=== PATIENT | female | born 1960 | race Caucasian/White ===

== ENCOUNTER → 2017-07-23 | Outpatient (CLI) | payer BC ==
[~2017-07-23] MED LIST: AMBIEN10 MG PO; ATORVASTATIN CA20 MG PO; BUSPIRONE HCL10 MG PO; BUSPIRONE HCL5 MG PO; CALCIUM500 M1; CEFTIN250 MG PO; CELEXA10 MG PO; CITALOPRAM HBR20 MG PO; CLONAZEPAM0.5 MG PO; CONCERTA36 MG; ESTROVEN ENER400 MCG; HAIR, SKIN & N1 EAC1; IRON325 M1 PO; KEFLEX500 MG PEG; KLONOPIN0.5 MG PO; MULTI-VITAMIN1 EACH; MYRBETRIQ25 MG PO; NIACIN50 MG; NORCO 5-325 TA1 EACH PO; PANTOPRAZOLE SO20 MG; PANTOPRAZOLE SO40 MG PO; TYLENOL WITH C1 EACH PO; VISION VITAMIN1 EAC1 PO; VISION VITAMIN1 EACH; VIT B12 PO; VITAMINS FOR H1 EACH; [UNRECOGNIZED DRUG - OTHER] PO
--- NOTE | 2017-07-23 17:00 | Diagnostic Imaging Report ---
PROCEDURE:C-SPINE COMPLETE COMPARISON:None. INDICATIONS:RIGHT SIDED NECK/JAW PAIN FINDINGS: Generalized osteopenia. The cervical spine is visualized in the lateral view from the skull base to T1. Grade 1 anterolisthesis of C5 on C6 approximately 1-2 mm. There are no acute, displaced fractures, lytic or blastic lesions. Vertebral body heights and intervertebral disc spaces are relatively well-preserved. Uncovertebral joint hypertrophy C4-C5 and C5-C6. Bilateral oblique views show mild narrowing of the right C5-C6 and left C5-C6 neural foramina. No aggressive lytic lesions. Prevertebral soft tissues are unremarkable. CONCLUSION: 1. Uncovertebral joint hypertrophy C4-C5 and C5-C6. 2. Grade one anterolisthesis of C5 on C6. 3. Vertebral body heights and intervertebral disc spaces are relatively well preserved. 4. Mild narrowing of right C5-C6, and left C5-C6 neural foramina. Juan A Wright M.D. Dictated by: Juan A Wright M.D. on 07/23/2017 at 17:00 Electronically approved by: Juan A Wright M.D. on 07/23/2017 at 17:00
== END ==
LOC: RAD 15:30
PROVIDERS: ATTEND Chiropractor
DX: M54.2 Cervicalgia (principal)
CPT/HCPCS: 72050

== ENCOUNTER → 2017-08-04 | Outpatient (CLI) | payer BC ==
--- NOTE | 2017-08-04 23:41 | Diagnostic Imaging Report ---
EXAMINATION: MRI of the cervical spine without contrast HISTORY: Neck and arm pain with numbness COMPARISON: None available TECHNIQUE: Sagittal T1, T2, STIR; axial T2, gradient echo. FINDINGS: Curvature: Normal lordosis. Vertebrae: No evidence of neoplasm, infection, or fracture. Foramen magnum: No mass, Chiari malformation, or basilar invagination. Spinal Cord: Normal size and signal intensity. Soft Tissues: Unremarkable. Mildly prominent perineural cyst on the right and C6-C7 to T1-T2. Degenerative changes: C1-C2: Unremarkable. C2-C3: Prominent facet arthroses, mainly in the right side without canal or foraminal stenoses. Minimal right facet joint effusion and bone marrow edema likely due to degenerative synovitis. C3-C4: Prominent facet arthrosis. No canal or foraminal stenoses C4-C5: Prominent facet arthrosis mainly on the left moderate left foraminal stenoses.. C5-C6: Bilateral facet arthrosis minimally on the right. Minimal foraminal narrowing. C6-C7: Mild facet arthrosis minimally right. No canal or foraminal stenosis. C7-T1: Bilateral facet arthrosis without canal or foraminal stenoses IMPRESSION: 1. Prominent facet arthrosis from C2-C3 to C7-T1 results in moderate foraminal stenosis on the left at C4-C5, otherwise no significant spinal canal or foraminal stenoses. 2. Mild degenerative Facet synovitis on the right at C2-C3. Signed by: Dr. Joy López M.D. on 08/04/2017 11:37 PM
== END ==
LOC: MRI 15:51
PROVIDERS: ATTEND Chiropractor
DX: M50.022 Cervical disc disorder at C5-C6 level with myelopathy (principal)
CPT/HCPCS: 72141

== ENCOUNTER 2017-08-18 13:37 | Outpatient (RCR) | payer BC ==
[2017-08-20] MEDS ORDERED: SODIUM CHLORIDE 0.9% 50ML 50 ML ONE (17:08)
[2017-08-20] MEDS ORDERED: IOPAMIDOL 370 MG/ML 200 ML INFUS..BTL INJ ONE (17:09)
== END 2017-09-04 ==
LOC: PT 13:37
PROVIDERS: ATTEND Neurological Surgery
DX: M54.2 Cervicalgia (principal); M54.5 Low back pain; M62.81 Muscle weakness (generalized)
CPT/HCPCS: 97110; 97163; Q9967

== ENCOUNTER → 2017-08-20 | Outpatient (CLI) | payer BC ==
--- NOTE | 2017-08-20 16:49 | Diagnostic Imaging Report ---
PROCEDURE: CT ABDOMEN WITH CONTRAST TECHNIQUE: The abdomen was scanned utilizing a multidetector helical scanner from the diaphragm to the iliac crest after the IV administration of 100 cc of Isovue 370 and the oral administration of water. Coronal and sagittal multiplanar reformations were obtained. Total DLP: 237.73 mGy-cm COMPARISON: CT abdomen pelvis 12/19/2014. INDICATIONS: EPIGASTRIC PAIN FINDINGS: LOWER THORAX: Normal. HEPATOBILIARY: No focal hepatic lesions. No biliary ductal dilatation. SPLEEN: Surgically absent PANCREAS: No focal masses or ductal dilatation. ADRENALS: No adrenal nodules. KIDNEYS: No hydronephrosis, stones, or solid mass lesions. PERITONEUM / RETROPERITONEUM: No free air or fluid. LYMPH NODES: No lymphadenopathy. VESSELS: Unremarkable. GI TRACT: Visualized portions of the bowel demonstrate no distention or wall thickening. Postoperative changes of Reji-en-Y gastric surgery. 2 duodenal diverticula measuring 3.0 cm and 3.1 cm. BONES AND SOFT TISSUES: Previous midline laparotomy scar. IMPRESSION: 1. Stable postoperative changes of Reji-en-Y gastric bypass. 2. No acute abnormalities identified in the abdomen or pelvis. Dictated by: En Guzman M.D. on 08/20/2017 at 16:51 Electronically approved by: En Guzman M.D. on 08/20/2017 at 16:51
== END ==
LOC: CT 11:52
PROVIDERS: ATTEND Internal Medicine Gastroenterology
DX: R10.13 Epigastric pain (principal); R10.12 Left upper quadrant pain; R10.812 Left upper quadrant abdominal tenderness; R19.7 Diarrhea, unspecified; R14.0 Abdominal distension (gaseous); E66.3 Overweight; I10 Essential (primary) hypertension; R53.83 Other fatigue; Z71.3 Dietary counseling and surveillance; Z80.0 Family history of malignant neoplasm of digestive organs; Z86.010 Personal history of colon polyps; Z98.84 Bariatric surgery status
CPT/HCPCS: 74160

== ENCOUNTER → 2018-04-21 | Day surgery (SDC) | payer BC ==
[2018-04-20 09:49] LABS: INR 0.89; PROTHROMBIN TIME 12.9 seconds (11.9-14.5)
[2018-04-20 09:58] LABS: ALANINE AMINOTRANSFERASE 21 IU/L (0-55); ALBUMIN 3.7 g/dL (3.5-5.0); ALBUMIN/GLOBULIN RATIO 1.4 (0.8-2.0); ALKALINE PHOSPHATASE 71 IU/L (40-150); BLOOD UREA NITROGEN 12 mg/dL (7-26); BUN/CREATININE RATIO 16 (6-25); CALCIUM 8.9 mg/dL (8.4-10.2); CARBON DIOXIDE 27 mmol/L (22-29); CHLORIDE 106 mmol/L (98-107); CREATININE, SERUM 0.76 mg/dL (0.57-1.11); EST GLOMERULAR FILTRATION RATE > 60 ML/MIN (60-); GLUCOSE 75 mg/dL (74-118); SODIUM 140 mmol/L (136-145)
[2018-04-21] VITALS (10 sets, daily range): BP systolic 97–117; BP diastolic 50–64
[~2018-04-21] VITALS: Ht 160 cm; Wt 68.9 kg
[~2018-04-21] MED LIST changes: +ALPRAZOLAM 0.5 MG TAB ONE; +CONCERTA36 MG PO; +DIPHENHYDRAMINE HCL 25 MG CAP ONE; +FENTANYL CITRATE/PF 100MCG/2 ML INJ ONE; -HAIR, SKIN & N1 EAC1; +HAIR, SKIN & N1 EAC1 PO; +HEPARIN SOD (PORCINE) 1000 UNIT/ML 30ML ONE; +HEPARIN SOD/SOD CHLORIDE 2,000 ML ONE; +IOPAMIDOL 370 MG/ML 200 ML INFUS..BTL INJ ONE; +LIDOCAINE HCL 1% LOCAL INJ 20 ML VIAL ONE; +MIDAZOLAM HCL 2 MG/2 ML VIAL ONE; +NITROGLYCERIN/D5W 200 MCG/ML 250 ML ONE; +SODIUM CHLORIDE 0.9% 1000ML 1,000 ML ONE; +SUPER B-50 COM1 EACH PO; +VERAPAMIL HCL 2.5 MG/ML 2 ML VIAL ONE; +VITAMIN C PO; +VITAMIN D1000 UNI1 PO
--- OUTSIDE RECORDS SUMMARY | 2018-04-21 08:50 | XMS REPORT | Clinical Summary ---
Author Author [facility] Organization [facility] Address Unknown Phone Unavailable Care Team Providers Care Crm Solution Architect Name Role Phone Lilian Howard MD PCP Allergies Comments Active Allergy Reactions Severity Noted Date Levofloxacin 07/25/2016 Medications End Date Status Medication Sig Dispensed Refills Start Date Active DAYTRANA 30 mg/9 hr 0 7 Active pantoprazole (PROTONIX) 0 40 MG EC tablet 7 Active citalopram (CeleXA) 10 MG 0 tablet 7 Active clonAZEPAM (KlonoPIN) 0.5 0 MG disintegrating tablet 7 Active atorvastatin (LIPITOR) 20 0 07/08/ MG tablet 7 Active Problems Problem Noted Date Iron deficiency anemia due to chronic blood loss 07/25/2016 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 Encounters Care Team Description Date Type Specialty Geo Sauer MD Iron deficiency anemia due to chronic blood loss (Primary Dx) 09/02/2017 Office Visit Hematology Tyler Hodge MA Iron deficiency anemia due to chronic blood loss (Primary Dx) 08/29/2017 Orders Only Hematology after 04/20/2017 Immunizations Name Dates Previously Given Next Due Pneumococcal Conjugate 07/25/2016 13-Valent Social History Date Tobacco Use Types Packs/Day Years Used Never Smoker Alcohol Use Drinks/Week oz/Week Comments No Sex Assigned at Date Recorded Not on file Industry Job Start Date Occupation Not on file Not on file Not on file Travel End Travel History Travel Start No recent travel history available. Last Filed Vital Signs Time Taken Vital Sign Reading 09/02/2017 11:49 AM CDT Blood Pressure 112/56 09/02/2017 11:49 AM CDT Pulse 76 09/02/2017 11:49 AM CDT Temperature 35.7 C (96.3 F) - Respiratory Rate - - Oxygen Saturation - - Inhaled Oxygen - Concentration 09/02/2017 11:49 AM CDT Weight 74.8 kg (164 lb 12.8 oz) 09/02/2017 11:49 AM CDT Height 160 cm (5' 3") 09/02/2017 11:49 AM CDT Body Mass Index 29.19 Plan of Treatment Health Maintenance Due Date Last Done Comments CERVICAL CANCER SCREENING 12/18/1983 BREAST CANCER SCREENING 2012 COLON CANCER SCREENING 2012 SHINGLES VACCINES (1 of 2012 2) INFLUENZA VACCINE 11/05/2017 Procedures Comments Procedure Name Priority Date/Time Associated Diagnosis FERRITIN LEVEL Routine 09/02/2017 Iron deficiency anemia 11:23 AM CDT due to chronic blood loss HC COMPLETE BLD COUNT Routine 09/02/2017 Iron deficiency anemia W/AUTO DIFF 11:23 AM CDT due to chronic blood loss after 04/20/2017 Results * CBC with platelet and differential (09/02/2017 11:23 AM CDT) WBC 7.30 4.50 - 11.00 k/uL [facility] DEPARTMENT OF PATHOLOGY AND GENOMIC MEDICINE RBC 4.50 4.20 - 5.50 m/uL [facility] DEPARTMENT OF PATHOLOGY AND GENOMIC MEDICINE HGB 13.0 12.0 - 16.0 g/dL [facility] DEPARTMENT OF PATHOLOGY AND GENOMIC MEDICINE HCT 39.8 37.0 - 47.0 % [facility] DEPARTMENT OF PATHOLOGY AND GENOMIC MEDICINE MCV 88.4 82.0 - 100.0 fL [facility] DEPARTMENT OF PATHOLOGY AND GENOMIC MEDICINE MCH 28.9 27.0 - 34.0 pg [facility] DEPARTMENT OF PATHOLOGY AND GENOMIC MEDICINE MCHC 32.7 31.0 - 37.0 g/dL [facility] DEPARTMENT OF PATHOLOGY AND GENOMIC MEDICINE RDW - SD 48.7 37.0 - 55.0 fL [facility] DEPARTMENT OF PATHOLOGY AND GENOMIC MEDICINE MPV 9.1 8.8 - 13.2 fL [facility] DEPARTMENT OF PATHOLOGY AND GENOMIC MEDICINE Platelet count 480 (H) 150 - 400 k/uL [facility] DEPARTMENT OF PATHOLOGY AND GENOMIC MEDICINE Neutrophils 50.2 39.0 - 69.0 % [facility] DEPARTMENT OF PATHOLOGY AND GENOMIC MEDICINE Lymphocytes 29.2 25.0 - 45.0 % [facility] DEPARTMENT OF PATHOLOGY AND GENOMIC MEDICINE Monocytes 12.7 (H) 0.0 - 10.0 % [facility] DEPARTMENT OF PATHOLOGY AND GENOMIC MEDICINE Eosinophils 6.8 (H) 0.0 - 5.0 % [facility] DEPARTMENT OF PATHOLOGY AND GENOMIC MEDICINE Basophils 1.1 (H) 0.0 - 1.0 % [facility] DEPARTMENT OF PATHOLOGY AND GENOMIC MEDICINE Specimen Blood Performing Organization Address City/State/Zipcode Phone Number [address] [address] PATHOLOGY AND GENOMIC MEDICINE * Ferritin level (09/02/2017 11:23 AM CDT) Ferritin level <13 (A) 13 - 150 ng/mL [facility] DEPARTMENT OF PATHOLOGY AND GENOMIC MEDICINE Specimen Plasma specimen Performing Organization Address City[facility] Phone Number [facility] DEPARTMENT [address] [address] PATHOLOGY AND GENOMIC MEDICINE after 04/20/2017 Insurance Payer Benefit Subscriber ID Type Phone Address Plan / Group BCBS ANTHEM xxxxxxxxxxxx PPO BLUE CROSS Advance Directives Patient has advance care planning documents on file. For more information, jesse lewis contact: Phoenix Trev[address] [place] [address]
--- OUTSIDE RECORDS SUMMARY | 2018-04-21 08:50 | XMS REPORT ---
Author Author [facility] Address Unknown Phone Unavailable Care Team Providers Care Director Funds Development Name Role Phone Ace DESAI Unavailable Unavailable Lucila HEARN D.C. Unavailable Unavailable MCNEILL, SOUHEIL Unavailable Unavailable CADORE, RANDY Unavailable Unavailable Problems This patient has no known problems. Allergies, Adverse Reactions, Alerts This patient has no known allergies or adverse reactions. Medications This patient has no known medications. Results Test Description Test Time Test Comments Text Results Atomic Results Result Comments CT ABDOMEN W [place] [address] Patient Name: KEVON COPPOLA MR #: [id number] : 1960 Age/Sex: 56/F Req #: [id number] Adm Physician: Ordered by: GAGANDEEP DESAI MD Report #: [id number] Location: CT Room/Bed: Procedure: [id number] CT/CT ABDOMEN W Exam Date: 08/20/17 Exam Time: 1556 REPORT STATUS: Signed PROCEDURE: CT ABDOMEN WITH CONTRAST TECHNIQUE: The abdomen was scanned utilizing a multidetector helical scanner from the diaphragm to the iliac crest after the IV administration of 100 cc of Isovue 370 and the oral administration of water. Coronal and sagittal multiplanar reformations were obtained. Total DLP: 237.73 mGy-cm COMPARISON: CT abdomen pelvis 12/19/2014. INDICATIONS: EPIGASTRIC PAIN FINDINGS: LOWER THORAX: Normal. HEPATOBILIARY: No focal hepatic lesions. No biliary ductal dilatation. SPLEEN: Surgically absent PANCREAS: No focal masses or ductal dilatation. ADRENALS: No adrenal nodules. KIDNEYS: No hydronephrosis, stones, or solid mass lesions. PERITONEUM / RETROPERITONEUM: No free air or fluid. LYMPH NODES: No lymphadenopathy. VESSELS: Unremarkable. GI TRACT: Visualized portions of the bowel demonstrate no distention or wall thickening. Postoperative changes of Reji-en-Y gastric surgery. 2 duodenal diverticula measuring 3.0 cm and 3.1 cm. BONES AND SOFT TISSUES: Previous midline laparotomy scar. IMPRESSION: 1. Stable postoperative changes of Reji-en-Y gastric bypass. 2. No acute abnormalities identified in the abdomen or pelvis. Dictated by: Nelda Pandey M.D. on 08/20/2017 at 16:51 Electronically approved by: Nelda Pandey M.D. on 08/20/2017 at 16:51 Dictated By: NELDA PANDEY MD 50 Transcribed By: JULISA on 08/20/171650 COPY TO: GAGANDEEP DESAI MD MRI SPINE CERVICAL WO [place] [address] Patient Name: KEVON COPPLOA MR #: [id number] : 1960 Age/Sex: 56/F Req #: [id number] Adm Physician: Ordered by: MAURO HEARN D.C. Report #: [id number] Location: MRI Room/Bed: Procedure: [id number] MRI/MRI SPINE CERVICAL WO Exam Date: Exam Time: REPORT STATUS: Signed EXAMINATION: MRI of the cervical spine without contrast HISTORY: Neck and arm pain with numbness COMPARISON: None available TECHNIQUE: Sagittal T1, T2, STIR; axial T2, gradient echo. FINDINGS: Curvature: Normal lordosis. Vertebrae: No evidence of neoplasm, infection, or fracture. Foramen magnum: No mass, Chiari malformation, or basilar invagination. Spinal Cord: Normal size and signal intensity. Soft Tissues: Unremarkable. Mildly prominent perineural cyst on the right and C6-C7 to T1-T2. Degenerative changes: C1-C2: Unremarkable. C2-C3: Prominent facet arthroses, mainly in the right side without canal or foraminal stenoses. Minimal right facet joint effusion and bone marrow edema likely due to degenerative synovitis. C3-C4: Prominent facet arthrosis. No canal or foraminal stenoses C4-C5: Prominent facet arthrosis mainly on the left moderate left foraminal stenoses.. C5-C6: Bilateral facet arthrosis minimally on the right. Minimal foraminal narrowing. C6-C7: Mild facet arthrosis minimally right. No canal or foraminal stenosis. C7- T1: Bilateral facet arthrosis without canal or foraminal stenoses IMPRESSION: 1. Prominent facet arthrosis from C2-C3 to C7-T1 results in moderate foraminal stenosis on the left at C4-C5, otherwise no significant spinal canal or foraminal stenoses. 2. Mild degenerative Facet synovitis on the right at C2-C3. Signed by: Dr. Joel López M.D. on 08/04/2017 11:37 PM Dictated By: JOEL LÓPEZ MD 36 Transcribed By: ESDRAS on 08/04/172336 COPY TO: MAURO HEARN D.C. CERVICAL SPINE 4 OR 5 VIEWS [place] [address] Patient Name: KEVON COPPOLA MR #: [id number] : 1960 Age/Sex: 56/F Req #: [id number] Adm Physician: Ordered by: MAURO HEARN D.C. Report #: [id number] Location: [facility] Room/Bed: Procedure: [id number] DX/CERVICAL SPINE 4 OR 5 VIEWS Exam Date: Exam Time: REPORT STATUS: Signed PROCEDURE: C-SPINE COMPLETE COMPARISON: None. INDICATIONS: RIGHT SIDED NECK/JAW PAIN FINDINGS: Generalized osteopenia. The cervical spine is visualized in the lateral view from the skull base to T1. Grade 1 anterolisthesis of C5 on C6 approximately 1-2 mm. There are no acute, displaced fractures, lytic or blastic lesions. Vertebral body heights and intervertebral disc spaces are relatively well- preserved. Uncovertebral joint hypertrophy C4-C5 and C5-C6. Bilateral oblique views show mild narrowing of the right C5-C6 and left C5-C6 neural foramina. No aggressive lytic lesions. Prevertebral soft tissues are unremarkable. CONCLUSION: 1. Uncovertebral joint hypertrophy C4-C5 and C5-C6. 2. Grade one anterolisthesis of C5 on C6. 3. Vertebral body heights and intervertebral disc spaces are relatively well preserved. 4. Mild narrowing of right C5-C6, and left C5-C6 neural foramina. Rene Wright M.D. Dictated by: Rene Wright M.D. on 07/23/2017 at 17:00 Electronically approved by: Reen Wright M.D. on 07/23/2017 at 17:00 Dictated By: RENE WRIGHT MD 170 Transcribed By: JULISA on 07/23/17 170 COPY TO: MAURO HEARN D.C. RENAL RETROPERITONEAL COMP [place] [address] Patient Name: KEVON COPPOLA MR #: [id number] : 1960 Age/Sex: 56/F Req #: [id number] [facility] Physician: Ordered by: LANIE MCNEILL MD Report #: [id number] Location: US Room/Bed: Procedure: [id number] US/US RENAL RETROPERITONEAL COMP Exam Date: 01/16/17 Exam Time: 1522 REPORT STATUS: Signed PROCEDURE: US RETROPERITONEAL ( KIDNEY ). COMPARISON: None. INDICATIONS: UTI, Back Pain TECHNIQUE: Perdomo-scale and color sonographic images of the bilateral kidneys and bladder where obtained in transverse and longitudinal planes. FINDINGS: RIGHT KIDNEY: 10.1 cm, cortex 1.2 cm Cysts: None Solid masses: None Stones: None Hydronephrosis: None Echogenicity: Normal LEFT KIDNEY: 9.9 cm, cortex 2.0 cm Cysts: None Solid masses: None Stones: None Hydronephrosis: None Echogenicity: Normal Bladder: No focal lesions. Bilateral ureteral jets are identified. CONCLUSION: Unremarkable renal ultrasound. Rene Wright M.D. Dictated by: Rene Wright M.D. on 01/16/2017 at 17:14 Electronically approved by: Rene Wright M.D. on 01/16/2017 at 17:14 Dictated By: RENE WRIGHT MD 13 Transcribed By: JULISA on 01/16/171713 COPY TO: LANIE MCNEILL MD MRI RIGHT KNEE WO [place] [address] Patient Name: KEVON COPPOLA MR #: [id number] : 1960 Age/Sex: 56/F Req #: [id number] Adm Physician: Ordered by: RANDY DALEY Report #: [id number] Location: MRI Room/Bed: Procedure: [id number] MRI/MRI RIGHT KNEE WO Exam Date: Exam Time: REPORT STATUS: Signed TECHNIQUE: Magnetic resonance imaging of the RIGHT KNEE was performed WITHOUT injected contrast. HISTORY: Right knee pain COMPARISON: Knee sprain FINDINGS: LIGAMENTS AND TENDONS: ACL: Mild mucoid degeneration PCL: Intact Collateral ligaments: Intact Iliotibial band: Unremarkable Popliteal tendon: Intact Extensor mechanism: Intact JOINT: Menisci: Medial: Degenerative signal without discrete tear Lateral: Degenerative signal with possible horizontal tear lateral meniscus coronal image 14. Articular Cartilage: Medial Compartment: Partial-thickness cartilage loss Lateral Compartment: Partial-thickness cartilage loss Patellofemoral Compartment: Partial thickness cartilage loss. Joint Fluid: Trace joint fluid. Trace An's cyst. Ganglion extending from the tibiofibular joint space inferiorly. BONE: No focal or infiltrative bone marrow replacing abnormality. No acute fracture. SOFT TISSUES: Otherwise, unremarkable. IMPRESSION: Tricompartmental cartilage loss. Medial and lateral meniscus degeneration with possible horizontal tear of the lateral meniscus. Signed by: Dr. Elissa Allen M.D. on 12/20/2016 7:40 AM Dictated By: ELISSA ALLEN MD 9 Transcribed By: ESDRAS on 12/20/16739 COPY TO: RANDY DALEY
--- NOTE | 2018-04-21 11:09 | NUR ---
Received patient to pre op holding room 8. Patient a&o x 3. Family at bedside. Vital signs stable. Patient instructed not to use or move right hand or wrist. Patient verbalized understanding. Food being ordered.
--- NOTE | 2018-04-21 12:10 | NUR ---
Removed 3 cc's of air from right wrist TR band. No bleeding or hematoma noted. Vital signs stable. Family at bedside.
--- NOTE | 2018-04-21 12:40 | NUR ---
Removed 3 cc's of air from right wrist TR Band. No bleeding or hematoma noted. Family at bedside. Vital signs stable.
--- NOTE | 2018-04-21 12:55 | NUR ---
removed 3 cc's of air from right wrist TR band. No bleeding or hematoma noted. Family remains at bedside. Vitals signs stable.
--- NOTE | 2018-04-21 13:10 | NUR ---
Removed remaining air from right wrist TR band. No bleeding or hematom noted. Band removed and sterile dressing placed to right radial site.
--- NOTE | 2018-04-21 13:40 | NUR ---
Discharge instructions given. Patient and daughter verbalized understanding. IV removed with cannula intact. Hemostasis obtained. Sterile dressing applied. Patient wheeled via to front lobby for discharge home lindarobindisha daughter driving vehicle.
--- NOTE | 2018-04-22 14:30 | Operative Report ---
DATE OF PROCEDURE: April 21, 2018 INDICATIONS: Coronary artery disease and abnormal stress test. PROCEDURES PERFORMED 1. Left heart catheterization. 2. Selective coronary angiography. 3. Deployment of right wrist transradial band. COMPLICATIONS: None. RECOMMENDATIONS: Medical therapy. Access was obtained in the radial artery using ultrasound guidance. A 5-Greenlandic sheath was placed. Diagnostic coronary angiogram revealed no angiographic coronary artery disease. Excellent flow in all vessels. No critical stenosis or occlusions. LV ejection fraction 70%. LV end-diastolic pressure of 8. Right wrist TR band applied. Patient discharged home same day. Job#: [id number] PR
== END | disposition home or self-care (01) ==
LOC: CATH LAB 08:30
PROVIDERS: ATTEND Internal Medicine Interventional Cardiology
DX: I25.10 Atherosclerotic heart disease of native coronary artery without angina pectoris (principal); R94.39 Abnormal result of other cardiovascular function study; R55 Syncope and collapse; J45.909 Unspecified asthma, uncomplicated; D64.9 Anemia, unspecified; E11.9 Type 2 diabetes mellitus without complications; I10 Essential (primary) hypertension; Z91.018 Allergy to other foods; Z01.812 Encounter for preprocedural laboratory examination; Z82.49 Family history of ischemic heart disease and other diseases of the circulatory system
CPT/HCPCS: 36415; 80053; 85610; 93458; C1887; J1644; J2001; J2250; J7030; Q9967

== ENCOUNTER → 2018-06-16 | Outpatient (CLI) | payer BC ==
[~2018-06-16] MED LIST changes: -ALPRAZOLAM 0.5 MG TAB ONE; -DIPHENHYDRAMINE HCL 25 MG CAP ONE; -FENTANYL CITRATE/PF 100MCG/2 ML INJ ONE; -HEPARIN SOD (PORCINE) 1000 UNIT/ML 30ML ONE; -HEPARIN SOD/SOD CHLORIDE 2,000 ML ONE; -IOPAMIDOL 370 MG/ML 200 ML INFUS..BTL INJ ONE; -LIDOCAINE HCL 1% LOCAL INJ 20 ML VIAL ONE; -MIDAZOLAM HCL 2 MG/2 ML VIAL ONE; -NITROGLYCERIN/D5W 200 MCG/ML 250 ML ONE; -SODIUM CHLORIDE 0.9% 1000ML 1,000 ML ONE; -VERAPAMIL HCL 2.5 MG/ML 2 ML VIAL ONE
--- NOTE | 2018-06-18 16:18 | Diagnostic Imaging Report ---
Exam: Bone mineral density study. Indication: Pediatric evaluation. The patient history questionnaire was completed and is available on PACS. Comparison: Previous DEXA 02/26/2016. Baseline DEXA 02/26/2016 Findings: Evaluation of the left hip and lumbar spine was performed utilizing a Hologic bone densitometer. The study is technically adequate. The patient's fracture risk is compared to an age-matched control. The patient denies prior surgery/fracture of the spine, hips or forearm. The left femoral neck total bone mineral density is 0.620 gm/cm2, the T-score is -2.1, and the total Z-score is -1.0. The total left hip bone mineral density is 0.744 gm/cm2, the T-score is -1.6, and the total Z-score is -0.9. The total mean hip BMD change versus baseline is +0.018. The lumbar spine total bone mineral density is 0.879 gm/cm2, the T-score is -1.5, and the Z-score is -0.4. The BMD change versus baseline is +0.065. Least significant change (LSC) for bone mineral density as provided by home hospice aide is 0.023 g/cm2 for lumbar spine and 0.027 g/cm2 for total hip. Impression: 1. Bone mineralization shows osteopenia. Fracture risk is moderate. 2. With a Z score of -1.0, the bone mineral density is low for someone of this age. 3. Since previous examination, there is no significant change of bone mineral density at the hips. There is significant improvement of bone mineral density of the lumbar spine. 4. Calculated ten-year risk of major osteoporotic fracture 7.9%, hip fracture 1.0%. Medical evaluation for secondary causes of low bone bone mineral density may be appropriate. Correlate clinically for the necessity and timing of the next bone mineral density study. Staff: Em Signed by: Dr. Johnie Strickland M.D. on 06/18/2018 4:15 PM
== END ==
LOC: DX 13:03
DX: Z12.31 Encounter for screening mammogram for malignant neoplasm of breast (principal); M81.0 Age-related osteoporosis without current pathological fracture
CPT/HCPCS: 77067; 77080

== ENCOUNTER → 2018-06-24 | Outpatient (CLI) | payer BC | LOC: MAMMO 09:02 | DX: N63.10 Unspecified lump in the right breast, unspecified quadrant (principal) ==

== ENCOUNTER → 2018-07-31 | Outpatient (CLI) | payer BC ==
[~2018-07-31] MED LIST changes: +GADOBENATE DIMEGLUMINE 1 ML IV ONE
--- NOTE | 2018-08-02 09:06 | Diagnostic Imaging Report ---
EXAMINATION: MRI Abdomen with and without contrast. TECHNIQUE: Axial T1 nonfat sat in and out of phase, axial T2 fat sat, coronal T2 nonfat sat, axial DWI and ADC MR images of the abdomen were obtained before and after the administration of 14 cc of gadolinium. Axial T1 fat sat GRE dynamic images in precontrast, arterial, venous and delayed phases were obtained. CLINICAL HISTORY:IBS with diarrhea, evaluate for choledocholithiasis, history of bariatric surgery (Reji-en-Y), history of splenectomy and cholecystectomy, history of chronic pancreatitis COMPARISON: None. FINDINGS: LOWER THORAX: Unremarkable. LIVER: Normal hepatic size and contour.. No hepatic signal abnormality. No focal hepatic lesions. BILIARY: No intrahepatic biliary ductal dilation. There is mild focal dilation of the common hepatic duct between the bifurcation and the insertion of the cystic duct, measuring approximately 8-9 mm (series 8, image 18 and series 11, image 2). The common bile duct is normal in caliber, measuring approximately 5 mm at the sacha hepatis and 4 mm at the pancreatic head. Normal luminal contour and tapering to the ampulla. No intraluminal filling defects, strictures or extrinsic compressions. Gallbladder is absent, with magnetic susceptibility artifact in the gallbladder fossa secondary to clips.. PANCREAS: Mild prominence of the pancreatic duct, which measures approximately 3.8 mm at the head, 3 mm at the neck, and 2.7 mm at the body. No focal pancreatic lesions are identified. SPLEEN: Spleen is absent.. ADRENALS: No nodules. KIDNEYS: No hydronephrosis or solid enhancing mass in the imaged portion of the kidneys. 5 mm T2 hyperintense, T1 hypointense nonenhancing simple cyst in the right mid to inferior kidney (series 6, image 26). 1.4 cm left superior pole and 1.3 cm left mid to inferior aspect T2 hyperintense nonenhancing structures consistent with peripelvic cysts (series 8, images 6 and 7). PERITONEUM / RETROPERITONEUM: No upper abdominal free fluid. GI TRACT: Visualized bowel shows no dilation or obstruction. Postoperative changes of Reji-en-Y gastric bypass. LYMPH NODES: No upper abdominal lymphadenopathy. VESSELS: The celiac trunk, superior and inferior mesenteric and bilateral renal arteries are patent. The portal, superior mesenteric and splenic veins are patent. No collateral circulation. BONES AND SOFT TISSUES: No abnormal bone marrow signal. No soft tissue abnormalities. IMPRESSION: 1. No MR evidence of choledocholithiasis. 2. Mild focal dilation of the common hepatic duct between the bifurcation and insertion of the cystic duct. This may relate to postoperative changes after cholecystectomy. No intrahepatic biliary ductal dilation. The common bile duct is normal in caliber. 3. Mild prominence of the pancreatic duct without focal pancreatic lesions identified. This may be secondary to chronic pancreatitis, as per patient history. 4. Status post cholecystectomy and splenectomy. Signed by: Dr. Juan A Wright M.D. on 08/02/2018 9:02 AM
== END ==
LOC: MRI 11:36
PROVIDERS: ATTEND Internal Medicine Gastroenterology
DX: Z12.11 Encounter for screening for malignant neoplasm of colon (principal); Z80.0 Family history of malignant neoplasm of digestive organs; R10.11 Right upper quadrant pain; R15.9 Full incontinence of feces; K58.0 Irritable bowel syndrome with diarrhea; D50.9 Iron deficiency anemia, unspecified; R53.83 Other fatigue; E66.3 Overweight; Z71.3 Dietary counseling and surveillance; Z86.010 Personal history of colon polyps; Z98.84 Bariatric surgery status
CPT/HCPCS: 74183

== ENCOUNTER → 2018-08-25 | Day surgery (SDC) | payer BC ==
[~2018-08-25] MED LIST changes: +ACETAMINOPHEN 1000 MG/100 ML IV ONE; +BACITRACIN 50,000 UNIT VIAL ONE; +BUPIVACAINE HCL 0.5% INJ 30 ML VIAL INJ ONE; +CEFAZOLIN SOD 1 GM/NS 50ML 50 ML IV ONE; +CREON DR 12,001 EACH PO; +DEXAMETHASONE SOD PHOS INJ 4 MG/ML VIAL ONE; +FENTANYL CITRATE/PF 100MCG/2 ML INJ ONE; -GADOBENATE DIMEGLUMINE 1 ML IV ONE; +KETOROLAC TROMETHAMINE 30 MG/ML VIAL ONE; +LIDOCAINE HCL 2% LOCAL INJ 5 ML SDV VIAL INJ ONE; +MIDAZOLAM HCL 2 MG/2 ML VIAL ONE; +MORPHINE SULFATE INJ 10 MG/ML ONE; +MUPIROCIN 2% OINT 22 GM TUBE ONE; +ONDANSETRON HCL INJ 2MG/ML 2ML 2 MG/ML VIAL ONE; +PROPOFOL IV EMULSION 10 MG/ML 20 ML VIAL ONE; +SEVOFLURANE INHAL SOLN 250 ML PEN BTL ONE; +VITAMIN B-12 INJ
--- OUTSIDE RECORDS SUMMARY | 2018-08-25 05:20 | XMS REPORT | Clinical Summary ---
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 Name Role Phone Lilian Howard MD PCP [...] (Primary Dx) 08/29/2017 Orders Only Hematology after 08/24/2017 Immunizations Name Dates Previously Given Next Due [...] Health Maintenance Due Date Last Done Comments BREAST CANCER SCREENING 2012 COLON CANCER SCREENING 2012 SHINGLES VACCINES (#1) 2012 INFLUENZA VACCINE 11/05/2018 Procedures Comments Procedure Name Priority Date/Time Associated Diagnosis FERRITIN LEVEL Routine 09/02/2017 Iron deficiency anemia 11:23 AM CDT due to chronic blood loss HC COMPLETE BLD COUNT Routine 09/02/2017 Iron deficiency anemia W/AUTO DIFF 11:23 AM CDT due to chronic blood loss after 08/24/2017 Results * CBC with platelet and differential (09/02/2017 11:23 AM CDT) WBC 7.30 4.50 - 11.00 k/uL [facility] DEPART[facility]OLOG[facility] GENOMIC MEDICINE RBC 4.50 4.20 - 5.50 m/uL [facility] DEPART[facility] OF [facility]OLOGY AND GENOMIC MEDICINE HGB 13.0 12.0 - 16.0 g/dL [facility] DEPARTMENT OF PATHOLOGY AND GENOMIC MEDICINE HCT 39.8 37.0 - 47.0 % [facility] DEPARTMENT OF PATHOLOGY AND GENOMIC MEDICINE MCV 88.4 82.0 - 100.0 fL [facility] DEPARTMENT OF PATHOLOGY AND GENOMIC MEDICINE MCH 28.9 27.0 - 34.0 pg [facility] DEPARTMENT OF PATHOLOGY AND GENOMIC MEDICINE MCHC 32.7 31.0 - 37.0 g/dL [facility] DEPARTMENT OF PATHOLOGY AND GENOMIC MEDICINE RDW - SD 48.7 37.0 - 55.0 fL [facility] DEPARTMENT OF PATHOLOGY AND GENOMIC MEDICINE MPV 9.1 8.8 - 13.2 fL [facility] DEPART[facility] OF PATHOLOGY AND GENOMIC MEDICINE Platelet count 480 (H) 150 - 400 k/uL [facility] DEPARTMENT OF PATHOLOGY AND GENOMIC MEDICINE Neutrophils 50.2 39.0 - 69.0 % [facility] DEPARTMENT OF PATHOLOGY AND GENOMIC MEDICINE Lymphocytes 29.2 25.0 - 45.0 % [facility] DEPARTMENT OF PATHOLOGY AND GENOMIC MEDICINE Monocytes 12.7 (H) 0.0 - 10.0 % [facility] DEPARTMENT OF PATHOLOGY AND GENOMIC MEDICINE Eosinophils 6.8 (H) 0.0 - 5.0 % [facility] DEPARTMENT OF PATHOLOGY AND GENOMIC MEDICINE Basophils 1.1 (H) 0.0 - 1.0 % [facility] DEPARTMENT OF PATHOLOGY AND GENOMIC MEDICINE Specimen Blood Performing Organization Address City/State/Zipcode Phone Number [address] [address] PATHOLOGY AND GENOMIC MEDICINE * Ferritin level (09/02/2017 11:23 AM CDT) Ferritin level <13 (A) 13 - 150 ng/mL [facility] DEPARTMENT OF PATHOLOGY AND GENOMIC MEDICINE Specimen Plasma specimen Performing Organization Address City/State/Zipcode Phone Number [address] [address] PATHOLOGY AND GENOMIC MEDICINE after 08/24/2017 Insurance Type Payer Benefit Subscriber ID Effective Phone Address Plan / Dates Group PPO BCBS [employer] xxxxxxxxxxxx [id number] BLUE CROSS resent Advance Directives Patient has advance care planning documents on file. For more information, jesse lewis contact: Phoenix Trevino [address] [place] [phone]
--- NOTE | 2018-08-25 07:15 | NUR ---
SPIRITUAL CARE - Pre-Surgery Assessment: Pt in bed. Pt's son at bedside. Pt reported supportive attention from family and friends. Intervention: I provided pastoral presence, hospitality, sympathetic listening, and prayer. I acquainted pt with availability of mutuel teller while hospitalized. Outcome: Pt expressed appreciation for visit. No need for follow up indicated at this time. AYDIN Aguilarlain Spiritual Care Department O: [phone] Pager: [phone] ([phone] number calling from)
[2018-08-25 10:00] VITALS: BP 117/63
--- NOTE | 2018-08-25 14:33 | Operative Report ---
DATE OF PROCEDURE: 08/25/2018 SURGEON: Ozzy Granado MD PREOPERATIVE DIAGNOSIS: Right CMC joint osteoarthritis. POSTOPERATIVE DIAGNOSIS: Right CMC joint osteoarthritis. PROCEDURE: Right wrist trapeziectomy. ANESTHESIA: General. HISTORY: The patient is a 57-year-old [id number] female, who complains of intractable pain secondary to right CMC osteoarthritis. The patient has had numerous cortisone injections and has been using a thumb spica splint as well. The pain is recalcitrant despite these interventions. Risks, benefits, and alternative treatment were discussed with the patient and she is prepared to undergo the procedure as outlined. PROCEDURE IN DETAIL: The patient was marked preoperatively in the holding area. She was brought to the operating theater and after the induction of adequate general anesthesia, she was prepped and draped in a supine position and a time-out was performed. The procedure was begun by marking out an incision over the dorsal aspect of the base of the right thumb metacarpal, carried over the CMC joint and then curved ulnarwards. The right upper extremity was exsanguinated and the tourniquet inflated to a pressure of 250 mmHg. The incision was made through the skin and subcutaneous tissues, venous tributaries were controlled with a bipolar cautery. The incision was deepened through the subcutaneous tissue until the tendons of the first dorsal compartment were identified. All the branches of the radial sensory nerve were identified in the subcutaneous plane and retracted and protected and preserved. At this point, the first dorsal compartment was released and the APL and EPB tendons were then retracted in a volar fashion. The dissection continued directly on the dorsal base of the metacarpal and incised down to level of the cortex. Periosteal flaps were then elevated and these were carried proximally over the CMC joint. The dorsal branch of the radial artery was identified directly on the capsule, it was dissected and then retracted and protected and preserved. At this point, the mini C-arm was brought in, verification of the position of the trapezium and the CMC joint was performed. The capsular flaps were then incised onto the dorsal aspect of the trapezium and elevated. Using a mallet and osteotome, the trapezium was sectioned longitudinally into two halves and then removed in a piecemeal fashion using rongeurs. The FCR tendon was identified behind the trapezium, it was protected and preserved. Once the trapezium had been completely removed, the fluoroscope was brought back in and verification and adequacy of the resection was done. When no more trapezium was remaining, the joint space was irrigated and all the particulate matter was removed. At this point, the joint space was instilled with approximately 10 mL of 0.5% plain Marcaine. The capsular flaps were then closed in a awoo-acfd-bjnht fashion utilizing 3-0 Vicryl in an interrupted shxosg-vt-yfvxg fashion. A 0.058 K-wire was driven across the base of the thumb metacarpal and transfixed the thumb to the index metacarpal preventing the thumb from migrating proximally. The pin was then cut off external to the skin. At this point, the wound was irrigated with bacteriostatic saline and the skin was closed with 5-0 nylon in an interrupted horizontal mattress fashion and a Marcaine field block was performed in the subcutaneous plane as well. The tourniquet was deflated. All of the fingers pinked up nicely and the wound was noted to be hemostatic. A sterile bulky conforming bandage was applied. A fiberglass splint was fashioned as a dorsally based thumb spike and held in place with a loosely wrapped Ky wrap. The patient tolerated the procedure well, was brought to recovery room in satisfactory condition and discharged with a postoperative instruction sheet as well as a followup appointment. MD JACOBY Trejo/TOY /[id number]
== END | disposition home or self-care (01) ==
LOC: OR 05:15
PROVIDERS: ATTEND Plastic Surgery
DX: M18.0 Bilateral primary osteoarthritis of first carpometacarpal joints (principal); M26.609 Unspecified temporomandibular joint disorder, unspecified side; R53.1 Weakness; K21.9 Gastro-esophageal reflux disease without esophagitis; K58.9 Irritable bowel syndrome, unspecified; K86.1 Other chronic pancreatitis; K57.90 Diverticulosis of intestine, part unspecified, without perforation or abscess without bleeding; F41.9 Anxiety disorder, unspecified; Z01.810 Encounter for preprocedural cardiovascular examination; Z98.61 Coronary angioplasty status
CPT/HCPCS: 25210; 93005; C1713; J0131; J0690; J1100; J1885; J2001; J2250; J2270; J2405; J2704

== ENCOUNTER 2018-10-02 13:55 | Outpatient (RCR) | payer BC ==
[~2018-10-02 13:55] MED LIST changes: -ACETAMINOPHEN 1000 MG/100 ML IV ONE; -BACITRACIN 50,000 UNIT VIAL ONE; -BUPIVACAINE HCL 0.5% INJ 30 ML VIAL INJ ONE; -CEFAZOLIN SOD 1 GM/NS 50ML 50 ML IV ONE; -DEXAMETHASONE SOD PHOS INJ 4 MG/ML VIAL ONE; -FENTANYL CITRATE/PF 100MCG/2 ML INJ ONE; -KETOROLAC TROMETHAMINE 30 MG/ML VIAL ONE; -LIDOCAINE HCL 2% LOCAL INJ 5 ML SDV VIAL INJ ONE; -MIDAZOLAM HCL 2 MG/2 ML VIAL ONE; -MORPHINE SULFATE INJ 10 MG/ML ONE; -MUPIROCIN 2% OINT 22 GM TUBE ONE; -ONDANSETRON HCL INJ 2MG/ML 2ML 2 MG/ML VIAL ONE; -PROPOFOL IV EMULSION 10 MG/ML 20 ML VIAL ONE; -SEVOFLURANE INHAL SOLN 250 ML PEN BTL ONE
== END 2018-10-04 ==
LOC: OT 13:55
PROVIDERS: ATTEND Plastic Surgery
DX: M18.11 Unilateral primary osteoarthritis of first carpometacarpal joint, right hand (principal); M25.541 Pain in joints of right hand; M25.641 Stiffness of right hand, not elsewhere classified; R53.1 Weakness

== ENCOUNTER → 2018-11-04 | Outpatient (RCR) | payer BC | LOC: OT 10-06 08:27 | PROVIDERS: ATTEND Plastic Surgery | DX: M18.11 Unilateral primary osteoarthritis of first carpometacarpal joint, right hand (principal); M25.541 Pain in joints of right hand; M25.641 Stiffness of right hand, not elsewhere classified; R53.1 Weakness ==

== ENCOUNTER 2018-11-12 15:30 | Outpatient (RCR) | payer BC | END 2018-12-05 | LOC: OT 15:30 | PROVIDERS: ATTEND Plastic Surgery | DX: M19.041 Primary osteoarthritis, right hand (principal); M18.11 Unilateral primary osteoarthritis of first carpometacarpal joint, right hand; M25.541 Pain in joints of right hand; M25.641 Stiffness of right hand, not elsewhere classified; R53.1 Weakness | CPT/HCPCS: 97139 ==

== ENCOUNTER → 2019-02-18 | Day surgery (SDC) | payer BC ==
[~2019-02-18] MED LIST changes: +B-12 SQ; +FENTANYL CITRATE/PF 100MCG/2 ML INJ ONE; +MIDAZOLAM HCL 2 MG/2 ML VIAL ONE; +PROPOFOL IV EMULSION 10 MG/ML 20 ML VIAL ONE; +[UNRECOGNIZED DRUG - OTHER] PO
[2019-02-18 07:51] LABS: BASOPHILS # (AUTO) 0.1 (0.0-0.1); BASOPHILS % 1.1 % (0.0-1.0); EOSINOPHILS # (AUTO) 0.4 (0.0-0.4); EOSINOPHILS % 7.5 % (0.0-6.0); HEMATOCRIT 41.2 % (34.2-44.1); HEMOGLOBIN 13.7 g/dL (12.0-16.0); LYMPHOCYTES # (AUTO) 1.8 (1.0-3.2); MEAN CORPUSCULAR HEMOGLOBIN 29.7 pg (28-32); MEAN CORPUSCULAR HGB CONC 33.3 g/dL (31-35); MEAN CORPUSCULAR VOLUME 89.4 fL (81-99); MONOCYTES # (AUTO) 0.7 (0.2-0.8); MONOCYTES % 13.3 % (4.4-11.3); NEUTROPHILS # (AUTO) 2.5 (2.1-6.9); NEUTROPHILS % 45.7 % (38.7-80.0); PLATELET COUNT 491 x10e3/uL (140-360); RED BLOOD COUNT 4.61 x10e6/uL (3.6-5.1); RED CELL DISTRIBUTION WIDTH 15.4 % (11.7-14.4)
[2019-02-18 09:15] VITALS: BP 108/62
--- NOTE | 2019-02-18 14:52 | Operative Report ---
DATE OF PROCEDURE: 02/18/2019 SURGEON: Amos Julian MD PREOPERATIVE DIAGNOSIS: History of gastric ulcer, status post Reji-en-Y gastric bypass. POSTOPERATIVE DIAGNOSIS: Healed gastric pouch ulcer. OPERATION PERFORMED: Esophagogastroduodenoscopy. ANESTHESIA: MAC. COMPLICATIONS: None. ESTIMATED BLOOD LOSS: None. DESCRIPTION OF PROCEDURE: With the patient lying in bed in the lateral position under good IV sedation, the flexible Olympus gastroscope was introduced and slowly and carefully advanced. The entire length of the esophagus was found to be within normal limits. The esophagogastric junction was reached. There was no sign of any reflux esophagitis. Esophagogastric junction was then entered and the Reji-en-Y gastric pouch was entered and insufflated. The previous gastric ulcer that the patient had was completely healed. There was no mucosal ulcerations or any sign of inflammation. There was a 0 clip that had been placed before in place. The Reji-Y limb was then entered and traversed all the way beyond the jejunojejunostomy. The jejunojejunostomy was widely patent and the efferent labrum was similarly widely patent. The scope was then slowly and carefully withdrawn. The patient tolerated the procedure well and returned to the recovery room in stable condition. MD PJ Roa/TOY /[id number]
== END | disposition home or self-care (01) ==
LOC: OR 06:23
PROVIDERS: ATTEND Surgery
DX: K27.9 Peptic ulcer, site unspecified, unspecified as acute or chronic, without hemorrhage or perforation (principal); Z98.84 Bariatric surgery status; K86.1 Other chronic pancreatitis; G47.33 Obstructive sleep apnea (adult) (pediatric); G43.909 Migraine, unspecified, not intractable, without status migrainosus; F41.9 Anxiety disorder, unspecified; Z88.1 Allergy status to other antibiotic agents; Z91.018 Allergy to other foods
CPT/HCPCS: 36415; 43235; 85025; 93005; J2250; J2704; J3010; 43239